=== PATIENT | female | born 1990 | race Asian ===

== ENCOUNTER 2018-12-22 04:40 | Emergency (ER) | payer OTHER ==
[~2018-12-22] VITALS: Ht 162.6 cm; Wt 45.5 kg
[2018-12-22 04:50] VITALS: BP 113/68
[2018-12-22] MEDS ORDERED: CYAN1TAB19 PO (05:07)
[2018-12-22] MEDS ORDERED: COLL1POW3 MC (05:07)
== END 2018-12-22 06:45 | disposition left against medical advice (07) ==
LOC: EMS 04:43
DX: Z53.21 Procedure and treatment not carried out due to patient leaving prior to being seen by health care provider (principal)